=== PATIENT | male | born 1985 | race Caucasian/White ===

== ENCOUNTER 2016-08-23 19:58 | Emergency (ER) | payer MEDICAID ==
[2016-08-23 20:22] VITALS: BP 119/75; PULSE 96; RESP 20; TEMP 97.9; O2SAT 97
[2016-08-23] MEDS ORDERED: IBUPROFEN 200 MG TAB PO ONE (21:16)
[2016-08-23] MEDS ORDERED: diphenhydrAMINE 25 MG CAP PO ONE (21:16)
--- NOTE | 2016-08-23 21:16 | EDPHY ---
H & P Stated Complaint: facial/nose swelling x 3 days Time Seen by Provider: 08/23/16 20:56 HPI/ROS: Chief complaint: Nasal congestion History of present illness: This is a 31-year-old male who presents to the emergency department for evaluation of nasal congestion. He reports he has had congestion for the last 2-3 days. He has had associated runny nose, facial pain and ear pressure. He denies precipitating factors. He denies alleviating factors. He denies other associated signs or symptoms including no fevers, no sore throat, no cough or trouble breathing. - Personal History Tetanus Vaccine Date: 09/2014 - Medical/Surgical History Hx Asthma: No Hx Chronic Respiratory Disease: No Hx Diabetes: No Hx Cardiac Disease: No Hx Renal Disease: No Hx Cirrhosis: No Hx Alcoholism: No Hx HIV/AIDS: No Hx Splenectomy or Spleen Trauma: No Other PMH: denies - Social History Smoking Status: Current every day smoker - Physical Exam Exam: General Appearance: Alert and no distress. Eyes: Pupils equal and round no injection. ENT: Tympanic membranes, external auditory canals, external ears and surrounding soft tissue including over the mastoids are unremarkable. Nasopharynx is injected. There is clear to green rhinorrhea. Oropharynx is not injected. There is no edema. There is no exudate. There is no asymmetry. The uvula is midline. No elevation of the tongue. There is no hoarseness, no drooling, no trismus, no stridor. Respiratory: Chest is nontender, lungs are clear to auscultation. Cardiac: regular rate and rhythm. Musculoskeletal: Neck is supple and nontender. Extremities have full range of motion and are nontender. Skin: No rashes or lesions. Neurological: Alert and oriented x4. No meningismus. Constitutional: Initial Vital Signs Temperature (C) 36.6 C 08/23/16 20:20 Heart Rate 96 08/23/16 20:20 Respiratory Rate 20 08/23/16 20:20 Blood Pressure 119/75 08/23/16 20:20 O2 Sat (%) 97 08/23/16 20:20 O2 Delivery Mode Room Air Allergies/Adverse Reactions: No Known Allergies Allergy (Verified 08/23/16 20:20) Home Medications: Medication Instructions Recorded Ambien 04/16/15 Vivitrol 04/16/15 Wellbutrin Sr 04/16/15 Doxycycline Hyclate [Vibramycin 100 mg PO BID #14 cap 05/05/15 100 MG (*)] Fluticasone Nasal [Flonase Nasal 2 sprays NASAL DAILY #1 mdi 08/23/16 [place] (RX)] Medical Decision Making ED Course/Re-evaluation: Patient seen under the supervision of my secondary supervising physician Dr. Isela Manjarrez. Patient presents to the emergency department for nasal congestion with runny nose, facial pain and ear discomfort. He is nontoxic. Afebrile and vital signs are stable. I believe this is acute sinusitis. I do not believe antibiotics are warranted at this time. He is asked to start flonase and use antihistamines and ibuprofen. Home care is discussed. He is asked to follow up with a primary care doctor for recheck. Return precautions are given. Patient voiced understanding and agreement with plan. - Data Points Medications Given: Discontinued Medications Diphenhydramine HCl (Benadryl) 25 mg PO EDNOW ONE Stop: 08/23/16 21:17 Last Admin: 08/23/16 21:20 Dose: 25 mg Ibuprofen (Motrin) 800 mg PO EDNOW ONE Stop: 08/23/16 21:17 Last Admin: 08/23/16 21:20 Dose: 800 mg Departure - Departure Disposition: Home, Routine, Self-Care Clinical Impression: Sinusitis Qualifiers: Sinusitis location: unspecified location Chronicity: acute Recurrence: non- recurrent Qualified Code(s): J01.90 - Acute sinusitis, unspecified Condition: Good Instructions: Sinusitis (ED) Additional Instructions: Follow-up with primary care doctor for recheck Use Flonase as discussed Use an antihistamine, such as Claritin or Zyrtec or Benadryl as directed Use ibuprofen 600 mg 3 times a day for the next 2-3 days for symptom control If symptoms worsen or new symptoms develop return to the emergency department for recheck Referrals: NONE *PRIMARY CARE P,. [Primary Care Provider] - As per Instructions [facility],. [Clinic] - As per Instructions Prescriptions: Fluticasone Nasal [Flonase Nasal [place] (RX)] 2 sprays NASAL DAILY #1 mdi
== END 2016-08-23 21:22 | disposition home or self-care (01) ==
DX: J01.90 Acute sinusitis, unspecified (principal); F17.200 Nicotine dependence, unspecified, uncomplicated

== ENCOUNTER 2016-09-28 20:02 | Emergency (ER) | payer MEDICAID ==
[2016-09-28 20:08] VITALS: BP 132/74; PULSE 99; RESP 16; TEMP 97.3; O2SAT 94
[2016-09-28] MEDS ORDERED: AMOXICILLIN/CLAVULANATE POT 875/125 MG TAB PO ONE (20:47)
--- NOTE | 2016-09-28 20:47 | EDPHY ---
H & P Time Seen by Provider: 09/28/16 20:16 HPI/ROS: This is a 31-year-old male complaining of sinus pain sinus pressure x1 month, increase in drainage foul tasting malodorous smell and taste of discharge. Intermittent fevers, also complaining of maxillary teeth pain x2 days. Patient states had intermittently tried Flonase and allergy medicine with no resolve. Denies any other complaints REVIEW OF SYSTEMS: Constitutional: Intermittent fever and chills Eyes: No blurred vision ENT: Sinus pain, with greenish discharge malodorous Respiratory: No cough no shortness of breath Musculoskeletal: No joint pain Skin: No rash Neurological: No headache or dizziness Smoking Status: Current every day smoker Physical Exam: CONSTITUTIONAL: patient appeared well nourished, non-ill appearing and normally developed. No acute distress. Vital signs as documented. HEENT: Normocephalic atraumatic PERRLA. TMs bilateral normal. Nasal mucosa erythema with mucosal edema noted, maxillary sinus tenderness on palpation. No dental malocclusion Oropharynx erythema no tonsillar swelling NECK: Supple, FROM without pain RESP: Non-labored resp effort NEURO: AAOx3 SKIN: Warm and dry no rash LYMPH: No lymphadenopathy PSYCH: Normal affect, calm, no distress Constitutional: Initial Vital Signs Temperature (C) 36.3 C 09/28/16 20:07 Heart Rate 99 09/28/16 20:07 Respiratory Rate 16 09/28/16 20:07 Blood Pressure 132/74 H 09/28/16 20:07 O2 Sat (%) 94 09/28/16 20:07 O2 Delivery Mode Room Air Allergies/Adverse Reactions: No Known Allergies Allergy (Verified 09/28/16 20:09) Home Medications: Medication Instructions Recorded Amoxicillin/Clavulanate Pot 875 mg PO BID #14 tab 09/28/16 [Augmentin 875 MG TAB (*)] Medical Decision Making ED Course/Re-evaluation: Discussed plan of care: Prescription Augmentin for acute sinus infection. Discharge home---> stable, discussed discharge instructions Differential Diagnosis: Differential diagnosis considered but not limited to allergic rhinitis, impetigo and dental infection - Data Points Medications Given: Discontinued Medications Amoxicillin/Clavulanate Potassium (Augmentin 875mg) 875 mg PO EDNOW ONE PRN Reason: Protocol Stop: 09/28/16 20:48 Last Admin: 09/28/16 20:51 Dose: 875 mg Departure - Departure Disposition: Home, Routine, Self-Care Clinical Impression: Acute sinusitis Instructions: Sinusitis (ED), Warm Compress or Soak (ED) Additional Instructions: 1. take all medications prescribed 2. Flonase 1-2 sprays daily in each nostril 3. Nasal saline washes several times daily 4. you can use ibuprofen 600 mg every 6-8 hours as needed 5. You can use topical bacitracin or triple antibiotic ointment to the opening of the nares for skin inflammation Referrals: NONE *PRIMARY CARE P,. [Primary Care Provider] - As per Instructions [facility],. [Clinic] - As per Instructions Prescriptions: Amoxicillin/Clavulanate Pot [Augmentin 875 MG TAB (*)] 875 mg PO BID #14 tab
== END 2016-09-28 20:50 | disposition home or self-care (01) ==
DX: J01.90 Acute sinusitis, unspecified (principal); F17.200 Nicotine dependence, unspecified, uncomplicated

== ENCOUNTER 2016-10-18 19:13 | Emergency (ER) | payer MEDICAID ==
[2016-10-18 19:19] VITALS: BP 108/76; RESP 16
--- NOTE | 2016-10-18 19:40 | EDPHY ---
H & P Time Seen by Provider: 10/18/16 19:19 HPI/ROS: CHIEF COMPLAINT: Possible sinus infection HISTORY OF PRESENT ILLNESS: 31-year-old male presents to the emergency department with concerns about recurring sinus infection. Patient states that he has had chronic nasal congestion, rhinorrhea, purulent nasal discharge and facial pain intermittently for the last few months. He was most recently treated with Augmentin for 1 week. He felt that his symptoms nearly completely resolved and then they returned just a few days ago. He is complaining specifically of right-sided facial pain. He has chronic nasal congestion. He feels that his teeth are starting to hurt especially in the right upper side. He has not noticed any fevers or chills. No cough. No chest pain or difficulty breathing. He is a chronic smoker. He has not followed up with ENT. He has been using Flonase nasal spray. REVIEW OF SYSTEMS: Constitutional: No fever, no chills. Eyes: No double or blurry vision. ENT: Nasal congestion as above. Facial pain. No sore throat. Respiratory: No cough, no shortness of breath. Cardiac: No chest pain. Gastrointestinal: No abdominal pain, vomiting or diarrhea. Genitourinary: No dysuria. Musculoskeletal: No neck or back pain. Skin: No rashes. Neurological: No headache. Past Medical/Surgical History: Chronic smoker, sinus infection Social History: Single Smoking Status: Current every day smoker Physical Exam: General Appearance: Alert, no distress. Afebrile. No apparent distress. Eyes: Pupils equal and round. Extraocular motions are all intact. ENT: Mouth: Mucous membranes moist. Purulent discharge noted especially in the right nostril. Very tender to palpate over the right maxillary sinus right frontal sinus. Respiratory: No wheezing, rhonchi, or rales, lungs are clear to auscultation. Cardiovascular: Regular rate and rhythm. Gastrointestinal: Abdomen is soft and nontender, no masses, no rebound or guarding, bowel sounds normal. Neurological: Alert and oriented x 3, cranial nerves II through XII grossly intact Skin: Warm and dry, no rashes. Musculoskeletal: Nontender to palpate along the cervical, thoracic or lumbar spine. Neck is supple. Extremities: Full range of motion and no peripheral edema. Psychiatric: Patient is oriented X 3, there is no agitation. Constitutional: Initial Vital Signs Temperature (C) 36.3 C 10/18/16 19:16 Heart Rate 84 10/18/16 19:16 Respiratory Rate 16 10/18/16 19:16 Blood Pressure 108/76 10/18/16 19:16 O2 Sat (%) 97 10/18/16 19:16 O2 Delivery Mode Room Air Allergies/Adverse Reactions: No Known Allergies Allergy (Verified 09/28/16 20:09) Home Medications: Medication Instructions Recorded Amoxicillin/Clavulanate Pot 875 mg PO BID #20 tab 10/18/16 [Augmentin 875 mg tab] Medical Decision Making ED Course/Re-evaluation: 31-year-old male presents to the emergency department with facial pain and concerned about recurring sinus infection. The patient will be treated with Augmentin 875 mg twice daily for 10 days. Was given ENT referral. I also encouraged him to use [id number] Mucinex, continue Flonase as needed. He was instructed to return sooner if he developed fever, worsening facial pain, or if he seems worse in any way. Patient was given ENT referral. Differential Diagnosis: Including but not limited to sinusitis, fungal infection, upper respiratory infection, bronchitis, pneumonia Departure - Departure Disposition: Home, Routine, Self-Care Clinical Impression: Sinusitis Qualifiers: Sinusitis location: maxillary Chronicity: acute Recurrence: recurrent Qualified Code(s): J01.01 - Acute recurrent maxillary sinusitis Condition: Good Instructions: Sinusitis (ED) Additional Instructions: Augmentin 875 mg twice daily for 10 days. Mucinex, guaifenesin, 600-1200 mg twice daily for pain with a large amount of water. You may continue Flonase nasal spray as prescribed. You should stop smoking. Follow up with ENT in 1-2 weeks if symptoms do not improve. Referrals: Constantine Ferreira MD [Medical Doctor] - 5-7 days, call for appt. (ENT on-call) Prescriptions: Amoxicillin/Clavulanate Pot [Augmentin 875 mg tab] 875 mg PO BID #20 tab
[2016-10-18 19:43] VITALS: PULSE 77; TEMP 97.9; O2SAT 96
== END 2016-10-18 19:43 | disposition home or self-care (01) ==
DX: J01.01 Acute recurrent maxillary sinusitis (principal); F17.200 Nicotine dependence, unspecified, uncomplicated

== ENCOUNTER 2016-10-25 19:34 | Emergency (ER) | payer MEDICAID ==
[2016-10-25 19:43] VITALS: BP 129/65; PULSE 84; RESP 16; TEMP 98.6; O2SAT 93
--- NOTE | 2016-10-25 20:25 | EDPHY ---
H & P Time Seen by Provider: 10/25/16 20:21 HPI/ROS: Left without being seen Smoking Status: Current every day smoker Constitutional: Initial Vital Signs Temperature (C) 37 C 10/25/16 19:42 Heart Rate 84 10/25/16 19:42 Respiratory Rate 16 10/25/16 19:42 Blood Pressure 129/65 H 10/25/16 19:42 O2 Sat (%) 93 10/25/16 19:42 O2 Delivery Mode Room Air Allergies/Adverse Reactions: No Known Allergies Allergy (Verified 10/25/16 19:41) Home Medications: Medication Instructions Recorded NK [No Known Home Meds] 10/25/16 Medical Decision Making - Data Points Laboratory Results: 10/25/16 20:05 Influenza Typ A,B (DFA) Pending Departure - Departure Referrals: NONE *PRIMARY CARE P,. [Primary Care Provider] - As per Instructions
== END 2016-10-25 20:21 | disposition left against medical advice (07) ==
DX: Z53.21 Procedure and treatment not carried out due to patient leaving prior to being seen by health care provider (principal)

== ENCOUNTER 2016-10-31 19:37 | Emergency (ER) | payer MEDICAID ==
[2016-10-31 20:08] VITALS: RESP 16
--- NOTE | 2016-10-31 20:49 | EDPHY ---
H & P Stated Complaint: ST HPI/ROS: Chief complaint: Sore throat History of present illness: This is a 31-year-old male who presents to the emergency department for evaluation of a sore throat. Patient reports the onset of symptoms over the last 2-3 days. Symptoms have been persistent. He reports associated sensation of swelling and pain when he swallows. Patient denies other associated signs or symptoms including no fevers, no cough or chest congestion, no headache or neck pain, no rash. - Personal History Current Tetanus/Diphtheria Vaccine: Yes Current Tetanus Diphtheria and Acellular Pertussis (TDAP): Yes Tetanus Vaccine Date: 09/2014 - Medical/Surgical History Hx Asthma: No Hx Chronic Respiratory Disease: No Hx Diabetes: No Hx Cardiac Disease: No Hx Renal Disease: No Hx Cirrhosis: No Hx Alcoholism: No Hx HIV/AIDS: No Hx Splenectomy or Spleen Trauma: No Other PMH: PMHx: denies. PSHx: denies - Social History Smoking Status: Current every day smoker - Physical Exam Exam: General Appearance: Alert, nontoxic. Eyes: Pupils equal and round no injection. ENT: Tympanic membranes, external auditory canals, external ears and surrounding soft tissue including over the mastoids are unremarkable. Nasopharynx is not injected. There is no rhinorrhea. Oropharynx is injected. There is no edema. There is no exudate. There is no asymmetry. The uvula is midline. No elevation of the tongue. There is no hoarseness, no drooling, no trismus, no stridor. Respiratory: Chest is non tender, lungs are clear to auscultation. Cardiac: regular rate and rhythm Musculoskeletal: Neck is supple and non tender. Extremities have full range of motion and are non tender. Skin: No rashes or lesions. Neurological: Alert and oriented. No meningismus. Constitutional: Initial Vital Signs Temperature (C) 36.9 C 10/31/16 20:07 Heart Rate 82 10/31/16 20:07 Respiratory Rate 16 10/31/16 20:07 Blood Pressure 116/69 10/31/16 20:07 O2 Sat (%) 95 10/31/16 20:07 O2 Delivery Mode Room Air Allergies/Adverse Reactions: No Known Allergies Allergy (Verified 10/25/16 19:41) Home Medications: Medication Instructions Recorded AMOXICILLIN 10/31/16 Medical Decision Making ED Course/Re-evaluation: Patient seen under the supervision of my secondary supervising physician Dr. Balbir Mckenna. Patient presents to the emergency department for evaluation of a sore throat. He is nontoxic. Vital signs are stable. Strep swab is negative. Appears to be of pharyngitis. No evidence of complications such as abscess or meningitis. I do not believe antibiotics are warranted. Patient is discharged home. Home care is discussed. Return precautions are given. Patient voiced understanding and agreement with plan. Differential Diagnosis: Included but not limited to pharyngitis, tonsillitis, abscess formation unlikely - Data Points Laboratory Results: 10/31/16 10/31/16 Unknown 20:07 Group A Strep Screen NEGATIVE (NEGATIVE) Group A Strep DNA Pending Departure - Departure Disposition: Home, Routine, Self-Care Clinical Impression: Acute pharyngitis Qualifiers: Pharyngitis/tonsillitis etiology: unspecified etiology Qualified Code(s): J02.9 - Acute pharyngitis, unspecified Condition: Good Instructions: Pharyngitis (ED) Additional Instructions: Follow-up with a primary care doctor for recheck Use ibuprofen 600 mg 3 times a day for the next 2-3 days for symptom control If symptoms worsen or new symptoms develop return to the emergency room for recheck Referrals: NONE *PRIMARY CARE P,. [Primary Care Provider] - As per Instructions [facility],. [Clinic] - As per Instructions
[2016-11-01 00:21] VITALS: BP 114/76; PULSE 72; TEMP 98.1; O2SAT 97
== END 2016-10-31 20:56 | disposition home or self-care (01) ==
DX: J02.9 Acute pharyngitis, unspecified (principal); F17.200 Nicotine dependence, unspecified, uncomplicated

== ENCOUNTER 2016-11-17 17:41 | Emergency (ER) | payer MEDICAID ==
[2016-11-17 18:09] VITALS: TEMP 97.7
--- NOTE | 2016-11-17 19:27 | EDPHY ---
H & P Stated Complaint: magallanes x 3 days/sinus issues Time Seen by Provider: 11/17/16 19:23 HPI/ROS: CHIEF COMPLAINT: HISTORY OF PRESENT ILLNESS: REVIEW OF SYSTEMS: A ten point review of systems was performed and is negative with the exception of the items mentioned in the HPI. - Personal History Current Tetanus/Diphtheria Vaccine: Yes Tetanus Vaccine Date: 09/2014 - Medical/Surgical History Hx Asthma: No Hx Chronic Respiratory Disease: No Hx Diabetes: No Hx Cardiac Disease: No Hx Renal Disease: No Hx Cirrhosis: No Hx Alcoholism: No Hx HIV/AIDS: No Hx Splenectomy or Spleen Trauma: No Other PMH: PMHx: denies. PSHx: denies - Social History Smoking Status: Current every day smoker - Physical Exam Exam: General Appearance: Alert. Vital signs reviewed. * Eyes: Pupils equal and round, no conjunctival injection, no discharge. Anicteric. ENT, Mouth: Mucous membranes are moist, no oropharyngeal erythema or edema. Neck: No lymphadenopathy, supple. Respiratory: Lungs are clear to auscultation; no wheezes, rales, or rhonchi. Cardiovascular: Regular rate and rhythm; no murmur, rub, or gallop. Gastrointestinal: Abdomen is soft and nontender, no masses or organomegaly, bowel sounds normal. Skin: Warm and dry, no rashes on exposed skin, normal color. Back: Nontender to palpation over the thoracolumbar spine. No CVAT. Extremities: No lower extremity edema, no calf tenderness or swelling. Neurological: Alert and oriented. Moving all four extremities easily and equally. Cranial nerves II through XII are examined and are intact (visual acuity not tested). Strength is 5 over 5 bilaterally with testing of all major motor groups. Sensation is intact to light touch over all 4 extremities. Deep tendon reflexes are 2+ in the biceps and knees bilaterally. Gait is normal. [id number] is performed accurately. Psychiatric: Normal affect. Constitutional: Initial Vital Signs Temperature (C) 36.5 C 11/17/16 17:59 Heart Rate 72 11/17/16 17:59 Respiratory Rate 17 11/17/16 17:59 Blood Pressure 128/79 H 11/17/16 17:59 O2 Sat (%) 95 11/17/16 17:59 O2 Delivery Mode Room Air Allergies/Adverse Reactions: No Known Allergies Allergy (Verified 11/17/16 17:58) Home Medications: Medication Instructions Recorded NK [No Known Home Meds] 11/17/16 Departure - Departure Referrals: NONE *PRIMARY CARE P,. [Primary Care Provider] - As per Instructions Physician Review and Approval Statement: 11/17/16 19:27 Portions of this note were transcribed by the medical apparatus model maker. I, Dr. Patricia Leary, personally performed the history, physical exam, and medical decision- making; and confirmed the accuracy of the information in the transcribed note.
--- NOTE | 2016-11-17 19:35 | EDPHY ---
H & P Smoking Status: Current every day smoker Time Seen by Provider: 11/17/16 19:23 HPI/ROS: CHIEF COMPLAINT: Sinus pain with congestion HISTORY OF PRESENT ILLNESS: This is a 31-year-old male presenting to the emergency department complaining of intermittent sinus pain and sinus congestion with headache onset 3 days ago. No fever no chills, has been taking intermittently ibuprofen 600 mg several times daily. Patient states" could be my allergies I'm not sure, this is been an ongoing issue for me. I have an appointment with ENT the next week" REVIEW OF SYSTEMS: Constitutional: No fever, no chills. No changes in ADLs Eyes: No discharge. No blurred vision ENT: No sinus pain with pressure no discharge No sore throat. Cardiovascular: No chest pain, no palpitations. Respiratory: No cough, no shortness of breath. Musculoskeletal: No back pain. Skin: No rashes. Neurological: Intermittent headache. (Yamila Hatch) Physical Exam: General Appearance: Alert, no distress. Eyes: PERRLA no pallor or injection. ENT, Mouth: Nasal mucosal membranes no erythema no edema. Frontal sinus, maxillary sinus nontender on palpation Mucous membranes moist. Posterior oropharynx no erythema no exudate uvula midline Respiratory: There are no retractions, lungs are clear to auscultation. Cardiovascular: Regular rate and rhythm. Neurological: No focal deficits all cranial nerves intact Skin: Warm and dry, no rashes. Musculoskeletal: Neck is supple nontender. Extremities: symmetrical, full range of motion. Psychiatric: Patient is oriented X 3, there is no agitation. (Yamila Hatch) Constitutional: Initial Vital Signs Temperature (C) 36.5 C 11/17/16 17:59 Heart Rate 72 11/17/16 17:59 Respiratory Rate 17 11/17/16 17:59 Blood Pressure 128/79 H 11/17/16 17:59 O2 Sat (%) 95 11/17/16 17:59 O2 Delivery Mode Room Air Allergies/Adverse Reactions: No Known Allergies Allergy (Verified 11/17/16 17:58) Home Medications: Medication Instructions Recorded NK [No Known Home Meds] 11/17/16 Medical Decision Making ED Course/Re-evaluation: Discussed plan of care: Discharge home---> stable, discussed discharge instructions with patient (Yamila Hatch) Differential Diagnosis: Other differential diagnosis considered but not limited to acute sinus infection , influenza and migraine (Yamila Hatch) Other Provider: This patient was evaluated and managed by the nurse practitioner. I have reviewed the chart and agree with the findings and plan of care as documented. ( Patricia Leary) Departure - Departure Disposition: Home, Routine, Self-Care Clinical Impression: Sinusitis Condition: Good Instructions: Sinusitis (ED), Allergies (ED) Additional Instructions: Discussed discharge instructions 1. you can use Flonase 1-2 sprays in each nares daily 2. Nasal saline washes several times a day. Humidified air may be beneficial 3. Follow up with ENT per your scheduled appointment next week 4. Take Sudafed as needed to help the congestion Referrals: NONE *PRIMARY CARE P,. [Primary Care Provider] - As per Instructions [facility],. [Clinic] - As per Instructions
[2016-11-17 19:45] VITALS: BP 130/80; PULSE 88; RESP 16; O2SAT 93
== END 2016-11-17 19:43 | disposition home or self-care (01) ==
DX: J32.9 Chronic sinusitis, unspecified (principal); F17.200 Nicotine dependence, unspecified, uncomplicated